=== PATIENT | female | born 1975 | race Asian ===

== ENCOUNTER 2022-01-10 21:39 | Emergency (ER) | payer OTHER ==
[~2022-01-10] VITALS: Ht 167.6 cm; Wt 61.7 kg
[2022-01-10 21:49] LABS: PLATELET COUNT 260 K/uL (152-353)
[2022-01-10 21:52] LABS: POTASSIUM 3.9 mmol/L (3.6-5.2)
[2022-01-10 22:24] LABS: PARTIAL THROMBOPLASTIN TIME 24.1 SECONDS (24.5-33.6)
[2022-01-10 22:55] VITALS: BP 127/69; TEMP 98.1
== END 2022-01-10 23:00 ==
LOC: ED 21:39
PROVIDERS: Hospitalist
DX: R07.89 Other chest pain (principal); I16.0 Hypertensive urgency; F17.210 Nicotine dependence, cigarettes, uncomplicated
CPT/HCPCS: 36415; 80053; 82550; 83880; 84484; 85027; 85379; 85610; 85730; 93005; 96375; 99284; J0360; J1885; J2405